=== PATIENT | female | born 1945 | race Caucasian/White ===

== ENCOUNTER → 2022-04-16 | Outpatient (CLI) | payer SELFPAY ==
[2022-04-23 20:10] LABS: 6-ACETYLMORPHINE Not Detected (.)
== END | disposition home or self-care (01) ==
LOC: LAB SHORT 17:14 → LAB 17:14
PROVIDERS: Family Medicine
DX: Z51.81 Encounter for therapeutic drug level monitoring (principal); Z79.899 Other long term (current) drug therapy
CPT/HCPCS: G0480

== ENCOUNTER 2023-04-23 19:54 | Emergency (ER) | payer MEDICARE ==
[~2023-04-23] VITALS: Ht 170.2 cm; Wt 68.0 kg
[2023-04-23 20:36] LABS: Source, Urine Clean Catch
[2023-04-23 20:39] LABS: Bilirubin, Urine Neg (Neg); Blood, Urine 5+ (Neg); Glucose Qualitative, Urine Neg (Neg); Ketones, Urine 1+ (Neg); Leukocyte Esterase, Urine 3+ (Neg); Nitrite, Urine Pos (Neg); Protein, Urine 3+ (Neg); Urobilinogen, Urine 1+ (Normal)
[2023-04-23 20:45] LABS: Appearance, Urine Cloudy (Clear); Color, Urine Brown (P-Yellow); Red Blood Cells, Urine TNTC /hpf (0-2); Squamous Epithelial Cells Few /hpf (Few)
[2023-04-23 20:46] LABS: Bacteria Many /hpf
[2023-04-23 22:30] VITALS: BP 130/66
[2023-04-23] MEDS ORDERED: Macrobid 100 M100 MG PO (22:44)
== END 2023-04-23 22:51 | disposition home or self-care (01) ==
LOC: ER 19:54
PROVIDERS: Physician Assistant
DX: N39.0 Urinary tract infection, site not specified (principal); Z88.2 Allergy status to sulfonamides; Z88.5 Allergy status to narcotic agent
CPT/HCPCS: 81001; 87077; 87086; 87186; 99283; A9270

== ENCOUNTER → 2023-07-19 | Outpatient (CLI) | payer MEDICARE ==
[~2023-07-19] MED LIST: Macrobid 100 M100 MG PO
== END | disposition home or self-care (01) ==
LOC: PLD 13:24 → LAB SHORT 13:24
DX: C44.319 Basal cell carcinoma of skin of other parts of face (principal)
CPT/HCPCS: 88305

== ENCOUNTER → 2023-09-17 | Outpatient (CLI) | payer MEDICARE ==
[~2023-09-17] MED LIST changes: +ACET500 PO; +ATOR80 PO; +BUPR100 PO; +DONE10 PO; +ELIQUIS5 M2 PO; +LISI5 PO; +METO50 PO
[2023-09-17 16:08] LABS: BASOPHILS ABSOLUTE AUTO 0.04 K/mm3 (0.00-0.23); BASOPHILS PERCENT AUTO 1 % (0-2); EOSINOPHILS ABSOLUTE AUTO 0.02 K/mm3 (0.00-0.68); EOSINOPHILS PERCENT AUTO 0 % (0-6); Hematocrit 42.1 % (33.0-51.0); Hemoglobin 13.8 g/dL (11.5-16.0); IMMATURE GRAN ABSOLUTE AUTO 0.01 K/mm3 (0.00-0.10); IMMATURE GRAN PERCENT AUTO 0 % (0-1); LYMPHOCYTES ABSOLUTE AUTO 1.12 K/mm3 (0.84-5.20); LYMPHOCYTES PERCENT AUTO 18 % (21-46); MONOCYTES ABSOLUTE AUTO 0.48 K/mm3 (0.16-1.47); MONOCYTES PERCENT AUTO 8 % (4-13); Mean Corpuscular HGB 29.3 pg (26.0-34.0); Mean Corpuscular HGB Conc 32.8 g/dL (31.5-36.5); Mean Corpuscular Volume 89 fL (80-100); Mean Platelet Volume 9.8 fL (9.1-12.4); NEUTROPHILS ABSOLUTE AUTO 4.47 K/mm3 (1.96-9.15); NEUTROPHILS PERCENT AUTO 73 % (41-73); Platelet Count 242 K/mm3 (150-400); RDW Coefficient Variation 13.1 % (11.7-14.2); RDW Standard Deviation 42.8 fL (35.1-46.3); Red Blood Cell Count 4.71 M/mm3 (3.80-5.20); White Blood Cell Count 6.14 K/mm3 (4.00-11.30)
[2023-09-17 16:17] LABS: Albumin, Blood 3.7 g/dL (3.4-5.0); Albumin/Globulin Ratio 0.9 (0.8-1.8); Bilirubin, Total 0.6 mg/dL (0.1-1.0); Bun/Creatinine Ratio 15.7 (12.0-20.0); Calcium, Blood 10.2 mg/dL (8.5-10.1); Creatinine, Blood 0.89 mg/dL (0.40-1.00); Total Protein, Blood 7.7 g/dL (6.4-8.2)
== END | disposition home or self-care (01) ==
LOC: LAB SHORT 16:03 → LAB 16:03
PROVIDERS: Physician Assistant
DX: R63.0 Anorexia (principal)
CPT/HCPCS: 80053; 85025

== ENCOUNTER 2023-09-27 13:50 | Day surgery (SDC) | payer MEDICARE ==
[2023-09-27] VITALS (16 sets, daily range): BP systolic 107–183; BP diastolic 54–94
[~2023-09-27] VITALS: Ht 167.6 cm; Wt 65.2 kg
--- NOTE | 2023-09-27 15:31 | NUR ---
09/27/23 1531 Linda Pizarro SPINAL NERVE BLOCK COMPLETED BY DR. CHOWDARY UPON ENTRY TO OR. PT TOLERATED WELL.
--- NOTE | 2023-09-27 17:17 | NUR ---
ARRIVAL TO SURGICAL UNIT ALERT & PLEASANT. ASSESSMENT CHARTED. DENIES N/V. SNACKS & WATER GIVEN. DENIES NEEDS.
[2023-09-28 04:29] VITALS: BP 119/62
--- NOTE | 2023-09-28 05:44 | NUR ---
SUMMARY- PT AMBULATORY TO BATHROOM W/ GB AND FWW. TOLERATES WELL. PT VOIDING AND DRINKING FLUIDS. PAIN MANAGED WELL THROUGHOUT SHIFT. CALL LIGHT IN REACH.
[2023-09-28 05:56] LABS: BASOPHILS ABSOLUTE AUTO 0.04 K/mm3 (0.00-0.23); BASOPHILS PERCENT AUTO 0 % (0-2); EOSINOPHILS ABSOLUTE AUTO 0.04 K/mm3 (0.00-0.68); EOSINOPHILS PERCENT AUTO 0 % (0-6); Hematocrit 31.4 % (33.0-51.0); Hemoglobin 10.2 g/dL (11.5-16.0); IMMATURE GRAN ABSOLUTE AUTO 0.02 K/mm3 (0.00-0.10); IMMATURE GRAN PERCENT AUTO 0 % (0-1); LYMPHOCYTES ABSOLUTE AUTO 1.24 K/mm3 (0.84-5.20); LYMPHOCYTES PERCENT AUTO 14 % (21-46); MONOCYTES ABSOLUTE AUTO 0.86 K/mm3 (0.16-1.47); MONOCYTES PERCENT AUTO 10 % (4-13); Mean Corpuscular HGB 29.6 pg (26.0-34.0); Mean Corpuscular HGB Conc 32.5 g/dL (31.5-36.5); Mean Corpuscular Volume 91 fL (80-100); Mean Platelet Volume 9.9 fL (9.1-12.4); NEUTROPHILS ABSOLUTE AUTO 6.84 K/mm3 (1.96-9.15); NEUTROPHILS PERCENT AUTO 76 % (41-73); Platelet Count 166 K/mm3 (150-400); RDW Coefficient Variation 13.4 % (11.7-14.2); RDW Standard Deviation 44.7 fL (35.1-46.3); Red Blood Cell Count 3.45 M/mm3 (3.80-5.20); White Blood Cell Count 9.04 K/mm3 (4.00-11.30)
[2023-09-28 06:17] LABS: Bun/Creatinine Ratio 28.6 (12.0-20.0); Calcium, Blood 8.9 mg/dL (8.5-10.1); Creatinine, Blood 0.63 mg/dL (0.40-1.00); Magnesium, Blood 2.1 mg/dL (1.6-2.4)
[2023-09-28 07:04] VITALS: BP 127/59
[2023-09-28] MEDS ORDERED: OXYC5 PO (08:46)
--- NOTE | 2023-09-28 11:07 | NUR ---
DISCHARGE PT HAS CLEARED THERAPY. PAIN WELL CONTROLLED. EATING, DRINKING, & VOIDING WELL. IS FORGETFUL, BUT INSTRUCTIONS DISCUSSED w/ SON WELL. VIK & POLAR PACK SENT w/ PT. ESCORTED OUT VIA W/C.
== END 2023-09-28 11:00 | disposition home or self-care (01) ==
LOC: ORSCMMR 13:50 → ORD 15:30 → SURS 16:39 → ORSCMMR 09-28 11:00
PROVIDERS: Orthopaedic Surgery
PROC: 0SRC0JA Replacement of Right Knee Joint with Synthetic Substitute, Uncemented, Open Approach (ICD-10-PCS; principal; 2023-09-27 15:30)
DX: M17.11 Unilateral primary osteoarthritis, right knee (principal); Z96.652 Presence of left artificial knee joint; I10 Essential (primary) hypertension; E78.5 Hyperlipidemia, unspecified; Z85.3 Personal history of malignant neoplasm of breast; Z79.899 Other long term (current) drug therapy; Z79.01 Long term (current) use of anticoagulants
CPT/HCPCS: 36415; 73560-RT; 80048; 83735; 85025; 97110; 97116; 97162; 97530; A9270; C1713; C1776; J0171; J0690; J0735; J1885; J2250; J2405; J2704; J2795; J7120

== ENCOUNTER 2024-10-19 11:15 | Emergency (ER) | payer MEDICARE ==
[~2024-10-19] VITALS: Ht 170.2 cm; Wt 68.0 kg
[~2024-10-19 11:15] MED LIST changes: +OXYC5 PO
[2024-10-19 11:36] VITALS: BP 136/102
[2024-10-19] MEDS ORDERED: Mupirocin 2% Ointment 22 GM TOP ONE (11:40)
[2024-10-19] MEDS ORDERED: Diphth,Pertuss(Acell),Tet Vac 0.5 ML VIAL IM ONE (11:40)
== END 2024-10-19 12:25 | disposition home or self-care (01) ==
LOC: ER 11:15
DX: T23.272A Burn of second degree of left wrist, initial encounter (principal); T23.271A Burn of second degree of right wrist, initial encounter; T31.0 Burns involving less than 10% of body surface; I10 Essential (primary) hypertension; E78.5 Hyperlipidemia, unspecified; X15.0XXA Contact with hot stove (kitchen), initial encounter; Z79.899 Other long term (current) drug therapy; Z88.2 Allergy status to sulfonamides; Z88.5 Allergy status to narcotic agent
CPT/HCPCS: 90471; 90715; 99283-25; A9270

== ENCOUNTER 2024-10-22 12:35 | Emergency (ER) | payer MEDICARE ==
[~2024-10-22] VITALS: Ht 170.2 cm; Wt 68.0 kg
[2024-10-22 16:30] VITALS: BP 139/67
== END 2024-10-22 17:00 | disposition home or self-care (01) ==
LOC: ER 12:35
DX: S82.031A Displaced transverse fracture of right patella, initial encounter for closed fracture (principal); S00.33XA Contusion of nose, initial encounter; W18.30XA Fall on same level, unspecified, initial encounter; I10 Essential (primary) hypertension; E78.5 Hyperlipidemia, unspecified; I48.91 Unspecified atrial fibrillation; Z79.2 Long term (current) use of antibiotics; Z79.899 Other long term (current) drug therapy; Z88.2 Allergy status to sulfonamides; Z88.5 Allergy status to narcotic agent
CPT/HCPCS: 70450; 73560-LT; 73560-RT; 99284-25